=== PATIENT | male | born 1985 | race Two or more races ===

== ENCOUNTER 2021-05-11 18:41 | Emergency (ER) | payer BC, OTHER ==
[~2021-05-11] VITALS: Ht 185.4 cm; Wt 72.6 kg
[2021-05-11 19:11] VITALS: BP 112/66
== END 2021-05-11 19:28 | disposition left against medical advice (07) ==
LOC: EDBD 18:41 → ER 18:46
DX: M25.572 Pain in left ankle and joints of left foot (principal); Z53.21 Procedure and treatment not carried out due to patient leaving prior to being seen by health care provider; V23.4XXA Motorcycle driver injured in collision with car, pick-up truck or van in traffic accident, initial encounter; Y93.89 Activity, other specified; Y92.89 Other specified places as the place of occurrence of the external cause; Y99.8 Other external cause status